=== PATIENT | female | born 1975 | race Caucasian/White ===

== ENCOUNTER 2016-06-19 05:55 | Inpatient (IN) | payer BC ==
[2016-06-18 11:34] LABS: BASOPHILS # (AUTO) 0.1 K/uL (0.0-0.2); BASOPHILS % (AUTO) 0.8 % (0.0-2.0); EOSINOPHILS # (AUTO) 0.2 K/uL (0.0-0.4); EOSINOPHILS % (AUTO) 3.1 % (0.0-4.0); HEMATOCRIT 42.3 % (36-48); HEMOGLOBIN 14.4 g/dL (12.0-16.0); LYMPHOCYTES # (AUTO) 2.3 K/uL (1.0-5.5); LYMPHOCYTES % (AUTO) 32.3 % (20.5-51.5); MEAN CORPUSCULAR HEMOGLOBIN 28 pg (27-31); MEAN CORPUSCULAR HGB CONC 34 % (32-36); MEAN CORPUSCULAR VOLUME 82 fL (79.0-98.0); MONOCYTES # (AUTO) 0.4 K/uL (0.0-1.0); MONOCYTES % (AUTO) 6.4 % (1.7-9.3); NEUTROPHILS % (AUTO) 57.4 % (40.0-70.0); PLATELET COUNT (AUTO) 348 K/uL (130-430); RED BLOOD CELL COUNT(AUTO) 5.14 MIL/uL (4.2-6.2); RED CELL DISTRIBUTION WIDTH 15.6 % (9.0-15.0)
[2016-06-18 11:39] LABS: BILIRUBIN,URINE NEGATIVE (NEGATIVE); BLOOD, URINE NEGATIVE (NEGATIVE); CLARITY/URINE CLEAR (CLEAR); COLOR,URINE YELLOW (YELLOW); GLUCOSE,URINE NEGATIVE (NEGATIVE); KETONES,URINE NEGATIVE (NEGATIVE); LEUKOCYTE ESTERASE ,URINE NEGATIVE (NEGATIVE); NITRITE, URINE NEGATIVE (NEGATIVE); PH,URINE 5.5 (5.0-8.0); PROTEIN URINE NEGATIVE (NEGATIVE); UROBILINOGEN,URINE 0.2 (0.2-1.0)
[2016-06-18 11:42] LABS: CALCIUM 9.1 mg/dL (8.4-11.0); CREATININE 0.75 mg/dL (0.55-1.30); POTASSIUM 4.3 mmol/L (3.5-5.1); TOTAL BILIRUBIN 0.4 mg/dL (0.0-1.0); TOTAL PROTEIN, SERUM 7.7 g/dL (6.4-8.3)
[~2016-06-19] VITALS: Ht 160 cm; Wt 102.1 kg
[2016-06-19] MEDS ORDERED: CEFAZOLIN SOD 2 GM in D5W 50 ML IV ONE (06:45)
[2016-06-19] MEDS ORDERED: KETOROLAC TROMETHAMINE 30 MG VIAL IVP ONE (07:40)
[2016-06-19] MEDS ORDERED: MIDAZOLAM HCL 5 MG/5 ML VIAL IVP ONE (07:40)
[2016-06-19] MEDS ORDERED: DEXAMETHASONE SOD PHOSPHATE 4 MG/ML VIAL IVP ONE (07:40)
[2016-06-19] MEDS ORDERED: ROCURONIUM BROMIDE 10 MG/ML (ZEMURON) IV ONE (07:40)
[2016-06-19] MEDS ORDERED: PROPOFOL 200MG/ 20ML VIAL (DIPRIVAN) IV ONE (07:40)
[2016-06-19] MEDS ORDERED: SEVOFLURANE 15 MIN GAS INH ONE (07:40)
[2016-06-19] MEDS ORDERED: HYDROmorphone 2 MG/ML VIAL IVP ONE (07:40)
[2016-06-19] MEDS ORDERED: LR 1,000 ML IV.SOLN IV ONE (07:40)
[2016-06-19] MEDS ORDERED: BISACODYL 10 MG/SUPPOSITORY RC PRN (10:45)
[2016-06-19] MEDS ORDERED: MORPHINE SULFATE 10 MG/ML VIAL IM ONE (10:45)
[2016-06-19] MEDS ORDERED: SENNOSIDES/DOCUSATE SODIUM 1 TAB TABLET(SENOKOT-S) PO PRN (10:45)
[2016-06-19] MEDS ORDERED: MORPHINE SULFATE 10 MG/ML VIAL IM SCH (10:45)
[2016-06-19] MEDS ORDERED: SIMETHICONE 80 MG TAB.CHEW PO PRN (10:45)
[2016-06-19] MEDS ORDERED: TEMAZEPAM 15 MG CAPSULE PO PRN (10:45)
[2016-06-19] MEDS ORDERED: DOCUSATE SODIUM 100 MG CAPSULE PO PRN (10:45)
[2016-06-19 12:00] VITALS: BP_SYST 146
[2016-06-19] MEDS ORDERED: HYDROmorphone 1 MG INJ. 1 MG/ML AMPUL IVP PRN (12:00)
[2016-06-19] MEDS ORDERED: LABETALOL 100 MG/ 20ML VIAL IVP PRN (12:00)
[2016-06-19] MEDS ORDERED: COMMUNICATION ORDER XX ONE ×2 (13:45→14:45)
[2016-06-19] MEDS ORDERED: MORPHINE 4 MG/ML INJ. SYRINGE IVP PRN (14:30)
[2016-06-19] MEDS: ONDANSETRON HCL 4 MG/2 ML VIAL IVP PRN ×2 (15:12→21:11)
[2016-06-19] MEDS: LR 1,000 ML IV SCH ×2 (15:24→20:00)
[2016-06-19 16:12] VITALS: BP_SYST 124
[2016-06-19 17:35] VITALS: BP_SYST 124
[2016-06-19] MEDS: KETOROLAC TROMETHAMINE 30 MG VIAL IVP SCH ×2 (17:57→18:00)
[2016-06-19] MEDS: HYDROmorphone 2 MG/ML VIAL IVP PRN (21:13)
[2016-06-19 21:20] VITALS: BP_SYST 133
[2016-06-20 00:44] VITALS: BP_SYST 143
[2016-06-20] MEDS: KETOROLAC TROMETHAMINE 30 MG VIAL IVP SCH ×2 (00:46→06:16)
[2016-06-20] MEDS: HYDROmorphone 2 MG/ML VIAL IVP PRN (04:07)
[2016-06-20] MEDS: ONDANSETRON HCL 4 MG/2 ML VIAL IVP PRN (04:07)
[2016-06-20 04:12] VITALS: BP_SYST 154
[2016-06-20] MEDS ORDERED: IBUPROFEN 600 MG TABLET PO ONE (07:00)
[2016-06-20] MEDS ORDERED: OXYCODONE/ACETAMINOPHEN 5-325 TABLET PO PRN (07:00)
[2016-06-20] MEDS ORDERED: IBUPROFEN 600 MG TABLET PO SCH (07:00)
[2016-06-20 07:23] LABS: ALBUMIN 3.3 g/dL (3.4-4.8); CALCIUM 8.6 mg/dL (8.4-11.0); CREATININE 0.73 mg/dL (0.55-1.30); POTASSIUM 4.1 mmol/L (3.5-5.1); TOTAL BILIRUBIN 0.6 mg/dL (0.0-1.0); TOTAL PROTEIN, SERUM 6.8 g/dL (6.4-8.3)
[2016-06-20 07:39] LABS: BASOPHILS % (AUTO) 0.2 % (0.0-2.0); HEMATOCRIT 36.6 % (36-48); HEMOGLOBIN 12.5 g/dL (12.0-16.0); LYMPHOCYTES # (AUTO) 1.5 K/uL (1.0-5.5); LYMPHOCYTES % (AUTO) 8.8 % (20.5-51.5); MEAN CORPUSCULAR HEMOGLOBIN 28 pg (27-31); MEAN CORPUSCULAR HGB CONC 34 % (32-36); MEAN CORPUSCULAR VOLUME 83 fL (79.0-98.0); MONOCYTES # (AUTO) 1.1 K/uL (0.0-1.0); MONOCYTES % (AUTO) 6.2 % (1.7-9.3); NEUTROPHILS # (AUTO) 14.5 K/uL (1.8-7.7); PLATELET COUNT (AUTO) 319 K/uL (130-430); RED BLOOD CELL COUNT(AUTO) 4.42 MIL/uL (4.2-6.2); RED CELL DISTRIBUTION WIDTH 15.3 % (9.0-15.0); WHITE BLOOD COUNT (AUTO) 17.1 K/uL (4.8-10.8)
[2016-06-20] MEDS: LR 1,000 ML IV SCH ×3 (07:42→17:10)
[2016-06-20 08:00] VITALS: BP_SYST 129
[2016-06-20] MEDS ORDERED: ENOXAPARIN SODIUM 40 MG/0.4 ML SYRINGE SUBCUT ONE (09:45)
[2016-06-20 10:30] LABS: NEUTROPHILS % (AUTO) 84.8 % (40.0-70.0)
[2016-06-20 12:00] VITALS: BP_SYST 145
[2016-06-20] MEDS: IBUPROFEN 600 MG TABLET PO SCH ×2 (12:05→17:12)
[2016-06-20] MEDS ORDERED: LOSARTAN POTASSIUM 50 MG TABLET (COZAAR) PO ONE (13:45)
[2016-06-20] MEDS: OXYCODONE/ACETAMINOPHEN 5-325 TABLET PO PRN (14:52)
[2016-06-20 16:00] VITALS: BP_SYST 136
[2016-06-20 20:00] VITALS: BP_SYST 130
[2016-06-21] VITALS (8 sets, daily range): BP systolic 113–148
[2016-06-21] MEDS: IBUPROFEN 600 MG TABLET PO SCH ×4 (00:05→17:57)
[2016-06-21] MEDS: LR 1,000 ML IV SCH ×2 (01:09→09:17)
[2016-06-21] MEDS: OXYCODONE/ACETAMINOPHEN 5-325 TABLET PO PRN ×3 (02:20→14:48)
[2016-06-21] MEDS ORDERED: ENOXAPARIN SODIUM 40 MG/0.4 ML SYRINGE SUBCUT SCH (09:00)
[2016-06-21 13:40] LABS: CREATININE 0.82 mg/dL (0.55-1.30); GLUCOSE 153 mg/dL (70-99); UREA NITROGEN, BLOOD 10 mg/dL (8-21)
[2016-06-21 13:45] LABS: CHLORIDE 106 mmol/L (98-107); SODIUM SERUM 138 mmol/L (136-145)
[2016-06-21 13:46] LABS: ANION GAP < 3 (5-15); GFR AFRICAN AMERICAN 98 mL/min (>90)
[2016-06-21] MEDS ORDERED: LOSARTAN POTASSIUM 50 MG TABLET (COZAAR) PO SCH (21:00)
== END 2016-06-21 19:00 | disposition home or self-care (01) | DRG 743 ==
LOC: SMU 05:55
PROVIDERS: ADMIT Obstetrics & Gynecology; ATTEND Obstetrics & Gynecology
PROC: 0UT70ZZ Resection of Bilateral Fallopian Tubes, Open Approach (ICD-10-PCS; 2016-06-19)
PROC: 0UT90ZZ Resection of Uterus, Open Approach (ICD-10-PCS; 2016-06-19)
PROC: 0UT00ZZ Resection of Right Ovary, Open Approach (ICD-10-PCS; principal; 2016-06-19 07:30)
DX: D25.9 Leiomyoma of uterus, unspecified (principal); D64.9 Anemia, unspecified; I10 Essential (primary) hypertension; F15.90 Other stimulant use, unspecified, uncomplicated; N83.8 Other noninflammatory disorders of ovary, fallopian tube and broad ligament; G47.33 Obstructive sleep apnea (adult) (pediatric); K21.9 Gastro-esophageal reflux disease without esophagitis; N85.2 Hypertrophy of uterus; E66.01 Morbid (severe) obesity due to excess calories; Z68.39 Body mass index [BMI] 39.0-39.9, adult; Z98.890 Other specified postprocedural states
CPT/HCPCS: 36415; 80048; 80053; 81003; 83036; 84703; 85025; 86886; 86900; 86901; 87081; 88307; J0690; J1100; J1170; J1650; J1885; J2250; J2270; J2405; J2704; J7060; J7120